=== PATIENT | female | born 1990 | race Hispanic/Latino ===

== ENCOUNTER 2017-04-21 14:35 | Inpatient (IN) | payer OTHER ==
[2017-04-21 16:15] LABS: Hemoglobin 13.4 gm/dl (10.1-14.3); Mean Corpuscular HGB Conc 33 % (30-34); Mean Corpuscular Hemoglobin 29 pg (28-32); Mean Corpuscular Volume 88 fl (79-97); Platelet Count 406 K/mm3 (140-440); Red Blood Count 4.65 M/mm3 (3.65-5.03); Red Cell Distribution Width 14.5 % (13.2-15.2); White Blood Count 11.2 K/mm3 (4.5-11.0)
[2017-04-21 16:32] LABS: Anion Gap 20 mmol/L; BUN/Creatinine Ratio 28; Blood Urea Nitrogen 17 mg/dL (7-17); Calcium 8.3 mg/dL (8.4-10.2); Carbon Dioxide 24 mmol/L (22-30); Chloride 100.6 mmol/L (98-107); Glucose 227 mg/dL (65-100); Potassium 4.6 mmol/L (3.6-5.0); Sodium 140 mmol/L (137-145)
[2017-04-21 17:02] LABS: Basophils % (Manual) 0 % (0.0-1.8); Blastocytes % (Manual) 0 %; Eosinophils % (Manual) 0 % (0.0-4.3)
[2017-04-21 17:03] LABS: Anisocytosis 1+; Ovalocytes Few
[2017-04-21 17:04] LABS: Diff Status Complete; Tear Drop Cells Rare
[2017-04-21] MEDS ORDERED: ATROVENT IH ONE ×2 (18:37→20:04)
[2017-04-21] MEDS ORDERED: TORADOL IV ONE (18:37)
[2017-04-21] MEDS ORDERED: PROVENTIL IH ONE ×2 (18:37→20:04)
--- NOTE | 2017-04-21 18:42 | Emergency Department Report ---
HPI - General Chief Complaint: Dyspnea/Respdistress Time Seen by Provider: 04/21/17 18:30 - HPI HPI: Room 18 The patient is a 27-year-old female presenting with a chief complaint of shortness of breath. The patient states she has felt "sick" for the past 2 weeks which includes increased work of breathing, chest tightness and dyspnea on exertion. Patient doesn't attend cough is nonproductive. Patient denies fever but admits to chills. Patient was nausea but denies vomiting. Patient states she developed rhinorrhea yesterday. Patient denies dysuria or sick contacts. Patient states she was diagnosed bronchitis 2 weeks ago and completed a course of azithromycin. Patient came by EMS and was administered as well as Solu-Medrol 125 mg IV and magnesium sulfate 2 g Location: Lungs Duration: 2 weeks Quality: Shortness of breath, wheezing Severity: Moderate Modifying factors: [see above] Context: [see above] Mode of transportation: [not driving] ED Past Medical Hx - Past Medical History Hx Asthma: Yes - Surgical History Past Surgical History?: No - Family History Family history: no significant - Social History Smoking Status: Former Smoker (none 5 days) Substance Use Type: None (denies illicit drug use) - Medications Home Medications: Home Medications Medication Instructions Recorded Confirmed Last Taken Type ALBUTEROL Inhaler [Proair] 2 puff IH QID PRN #1 inhalation 04/21/17 Unknown Rx Ibuprofen [Motrin 800 MG tab] 800 mg PO Q8HR PRN #20 tablet 04/21/17 Unknown Rx Prednisone [predniSONE 10 mg 10 mg PO .TAPER #1 tab.ds.pk 04/21/17 Unknown Rx (6-Day Pack, 21 Tabs)] ED Review of Systems ROS: Stated complaint: JARETT Other details as noted in HPI Constitutional: chills. denies: fever ENT: other (rhinorrhea) Respiratory: cough, shortness of breath, wheezing Endocrine: no symptoms reported Gastrointestinal: nausea. denies: vomiting Genitourinary: denies: dysuria Musculoskeletal: myalgia Physical Exam - Physical Exam Vital Signs: Vital Signs 04/21/17 04/21/17 14:54 15:07 Temperature 98.2 F 98.2 F Pulse Rate 129 H 109 H Respiratory 24 22 Rate Blood Pressure 112/69 Blood Pressure 103/64 [Left] O2 Sat by Pulse 99 99 Oximetry Physical Exam: GENERAL: The patient is well-developed well-nourished female sleeping on stretcher not appearing to be in acute distress. And easily awakened HEENT: Normocephalic. Atraumatic. Extraocular motions are intact. Patient has moist mucous membranes. NECK: Supple. Trachea midline CHEST/LUNGS: Faint wheezes bilaterally. There is no respiratory distress noted. HEART/CARDIOVASCULAR: Regular. There is no tachycardia. There is no gallop rub or murmur. ABDOMEN: Abdomen is soft, nontender. Patient has normal bowel sounds. There is no abdominal distention. SKIN: There is no rash. There is no diaphoresis. NEURO: The patient is awake, alert, and oriented. The patient is cooperative. The patient has normal speech and gait. MUSCULOSKELETAL: T There is no evidence of acute injury. ED Course Vital Signs 04/21/17 04/21/17 14:54 15:07 Temperature 98.2 F 98.2 F Pulse Rate 129 H 109 H Respiratory 24 22 Rate Blood Pressure 112/69 Blood Pressure 103/64 [Left] O2 Sat by Pulse 99 99 Oximetry - Reevaluation(s) Reevaluation #1: 04/21/17 20:58 There's been no improvement despite multiple nebulizers, slight Medrol and magnesium. Will admit the patient to the hospital ED Medical Decision Making - Lab Data Result diagrams: 04/21/17 15:59 04/21/17 15:59 Laboratory Tests 04/21/17 04/21/17 04/21/17 15:59 15:59 17:42 WBC 11.2 H RBC 4.65 Hgb 13.4 Hct 41.0 MCV 88 MCH 29 MCHC 33 RDW 14.5 Plt Count 406 Add Manual Diff Complete Total Counted 100 Seg Neuts % (Manual) 93.0 H Band Neutrophils % 0 Lymphocytes % (Manual) 6.0 L Reactive Lymphs % (Man) 0 Monocytes % (Manual) 1.0 Eosinophils % (Manual) 0 Basophils % (Manual) 0 Metamyelocytes % 0 Myelocytes % 0 Promyelocytes % 0 Blast Cells % 0 Nucleated RBC % Not Reportable Seg Neutrophils # Man 10.4 H Band Neutrophils # 0.0 Lymphocytes # (Manual) 0.7 L Abs React Lymphs (Man) 0.0 Monocytes # (Manual) 0.1 Eosinophils # (Manual) 0.0 Basophils # (Manual) 0.0 Metamyelocytes # 0.0 Myelocytes # 0.0 Promyelocytes # 0.0 Blast Cells # 0.0 WBC Morphology Not Reportable Hypersegmented Neuts Not Reportable Hyposegmented Neuts Not Reportable Hypogranular Neuts Not Reportable Smudge Cells Not Reportable Toxic Granulation Not Reportable Toxic Vacuolation Not Reportable Dohle Bodies Not Reportable Pelger-Huet Anomaly Not Reportable Farhan Rods Not Reportable Platelet Estimate Appears normal Clumped Platelets Not Reportable Plt Clumps, EDTA Not Reportable Large Platelets Not Reportable Giant Platelets Not Reportable Platelet Satelliting Not Reportable Plt Morphology Comment Not Reportable RBC Morphology Not Reportable Dimorphic RBCs Not Reportable Polychromasia Not Reportable Hypochromasia Not Reportable Poikilocytosis Not Reportable Anisocytosis 1+ Microcytosis Not Reportable Macrocytosis Not Reportable Spherocytes Not Reportable Pappenheimer Bodies Not Reportable Sickle Cells Not Reportable Target Cells Not Reportable Tear Drop Cells Rare Ovalocytes Few Helmet Cells Not Reportable [place] Bodies Not Reportable [place] Rings Not Reportable [place] Cells Not Reportable Bite Cells Not Reportable Crenated Cell Not Reportable Elliptocytes Not Reportable Acanthocytes (Spur) Not Reportable Rouleaux Not Reportable Hemoglobin C Crystals Not Reportable Schistocytes Not Reportable Malaria parasites Not Reportable Leonid Bodies Not Reportable Hem Pathologist Commnt No Sodium 140 Potassium 4.6 Chloride 100.6 Carbon Dioxide 24 Anion Gap 20 BUN 17 Creatinine 0.6 L Estimated GFR > 60 BUN/Creatinine Ratio 28 Glucose 227 H Calcium 8.3 L Troponin T < 0.010 Urine HCG, Qual Negative - EKG Data -: EKG Interpreted by Me EKG shows normal: sinus rhythm Rate: tachycardia (121 bpm) - Radiology Data Radiology results: image reviewed (chest x-ray) interpreted by me: Chest x-ray-no definite focal infiltrates. No pneumothorax - Differential Diagnosis acute asthma exacerbation influenza, pneumonia, pneumothorax Critical care attestation.: If time is entered above; I have spent that time in minutes in the direct care of this critically ill patient, excluding procedure time. ED Disposition Clinical Impression: URI (upper respiratory infection), Status asthmaticus Disposition: OP ADMIT IP TO THIS HOSP Is pt being admited?: Yes Does the pt Need Aspirin: No Condition: Fair Instructions: Asthma (ED) Additional Instructions: Return to the emergency department immediately should you develop worsening symptoms, fever, inability to tolerate food or liquid or any other concerns. Prescriptions: ALBUTEROL Inhaler [Proair] 2 puff IH QID PRN #1 inhalation PRN Reason: Shortness Of Breath Ibuprofen [Motrin 800 MG tab] 800 mg PO Q8HR PRN #20 tablet PRN Reason: Pain Prednisone [predniSONE 10 mg (6-Day Pack, 21 Tabs)] 10 mg PO .TAPER #1 tab.ds.pk Referrals: PRIMARY CARE, [Primary Care Provider] - 3-5 Days Time of Disposition: 21:00 (hospitalist paged)
[2017-04-21] MEDS ORDERED: XOPENEX IH ONE (21:41)
[2017-04-21] MEDS ORDERED: MOTRIN PO ONE (22:07)
[2017-04-21] MEDS ORDERED: DULCOLAX PR PRN (22:09)
[2017-04-21] MEDS ORDERED: MILK OF MAGNESIA PO PRN (22:09)
--- NOTE | 2017-04-21 22:12 | History and Physical Report ---
History of Present Illness Date of examination: 04/21/17 History of present illness: 27-year-old woman with history of asthma comes to emergency room with complaints of shortness of breath 2 weeks, nonproductive cough and chills. She has no nebulizer treatments at home Review Of Systems: Constitutional: no weight loss Ears, eyes, nose, mouth and throat: no nasal congestion, no nasal discharge, no sinus pressure, blurry vision, diplopia Neck: No neck pain or rigidity. Cardiovascular: chest pain, orthopnea, palpitations Respiratory: + shortness of breath, cough Gastrointestinal: no abdominal pain, hematochezia Genitourinary : no dysuria, frequency , hematuria Musculoskeletal: no muscle ache Integumentary: no rash, no pruritis Neurological: no parathesias, focal weakness Endocrine: no cold or heat intolerance, no polyuria or polydipsia Hematologic/Lymphatic: no easy bruising, no easy bleeding, no gland swelling Allergic/Immunologic: no urticaria, no angioedema. PAST MEDICAL HISTORY:asthma PAST SURGICAL HISTORY: 2 FAMILY HISTORY: Hypertension SOCIAL HISTORY: Smokes half pack a day, no alcohol or drugs Medications and Allergies Allergies Allergy/AdvReac Type Severity Reaction Status Date / Time Penicillins AdvReac Angioedema Verified 04/21/17 15:09 Home Medications Medication Instructions Recorded Confirmed Last Taken Type ALBUTEROL Inhaler [Proair] 2 puff IH QID PRN #1 inhalation 04/21/17 Unknown Rx Ibuprofen [Motrin 800 MG tab] 800 mg PO Q8HR PRN #20 tablet 04/21/17 Unknown Rx Prednisone [predniSONE 10 mg 10 mg PO .TAPER #1 tab.ds.pk 04/21/17 Unknown Rx (6-Day Pack, 21 Tabs)] Exam - Physical Exam Narrative exam: Gen. appearance: Patient lying in bed in no acute distress HEENT: Normocephalic/atraumatic, pupils equal round reactive to light, extra alkaline movement intact, no scleral icterus, no JVD or thyromegaly or nodule, neck is supple, mucous membrane moist, no erythema or exudate Heart: S1-S2, regular rate and rhythm Lungs: Wheezing bilateral breathing comfortable Abdomen: Positive bowel sounds, nontender, nondistended, no organomegaly Extremities: No edema, cyanosis, clubbing Neuro:: Oriented 3 , cranial nerves II-12 intact, speech, motor intact Skin: No rash, nodules, warm dry - Constitutional Vitals: Temp Pulse Resp BP Pulse Ox 97.7 F 118 H 22 111/70 95 04/21/17 19:42 04/21/17 21:13 04/21/17 21:13 04/21/17 19:32 04/21/17 19:32 Results - Labs CBC & Chem 7: 04/21/17 15:59 04/21/17 15:59 Labs: Abnormal lab results 04/21/17 04/21/17 Range/Units 15:59 15:59 WBC 11.2 H (4.5-11.0) K/mm3 Seg Neuts % (Manual) 93.0 H (40.0-70.0) % Lymphocytes % (Manual) 6.0 L (13.4-35.0) % Seg Neutrophils # Man 10.4 H (1.8-7.7) K/mm3 Lymphocytes # (Manual) 0.7 L (1.2-5.4) K/mm3 Creatinine 0.6 L (0.7-1.2) mg/dL Glucose 227 H (65-100) mg/dL Calcium 8.3 L (8.4-10.2) mg/dL Assessment and Plan Assessment Asthma exacerbation Plan Admit to medicine Start high-dose steroids, nebulizer treatments DVT prophylaxis
[2017-04-21] MEDS: ROBITUSSIN AC PO PRN (23:20)
[2017-04-22] MEDS: DUONEB *Not for PRN Use IH SCH ×2 (02:37→08:18)
[2017-04-22] MEDS: ZOFRAN IV PRN ×2 (02:43→11:38)
[2017-04-22 03:07] LABS: Hematocrit 37.8 % (30.3-42.9); Hemoglobin 12.8 gm/dl (10.1-14.3); Mean Corpuscular HGB Conc 34 % (30-34); Mean Corpuscular Hemoglobin 30 pg (28-32); Mean Corpuscular Volume 87 fl (79-97); Platelet Count 390 K/mm3 (140-440); Red Blood Count 4.33 M/mm3 (3.65-5.03); Red Cell Distribution Width 14.3 % (13.2-15.2); White Blood Count 10.4 K/mm3 (4.5-11.0)
[2017-04-22 03:24] LABS: Anion Gap 22 mmol/L; BUN/Creatinine Ratio 20; Blood Urea Nitrogen 10 mg/dL (7-17); Calcium 8.7 mg/dL (8.4-10.2); Carbon Dioxide 18 mmol/L (22-30); Chloride 102.2 mmol/L (98-107); Glucose 227 mg/dL (65-100); Sodium 139 mmol/L (137-145)
[2017-04-22 04:09] LABS: Basophils % (Manual) 0 % (0.0-1.8); Blastocytes % (Manual) 0 %; Diff Status Complete; Eosinophils % (Manual) 0 % (0.0-4.3); Platelet Estimate Consistent w Auto
[2017-04-22] MEDS: TYLENOL PO PRN ×2 (04:21→11:38)
[2017-04-22] MEDS: ROBITUSSIN AC PO PRN ×2 (04:22→10:38)
[2017-04-22] MEDS ORDERED: PROVENTIL IH PRN (05:28)
--- NOTE | 2017-04-22 07:34 | XRay Report ---
ROUTINE CHEST, TWO VIEWS: HISTORY: Short of breath. No comparison. The lungs appear hyperinflated. This may represent reactive airway disease, bronchiolitis or emphysema. Bronchial wall thickening in the hilar regions is identified but no evidence for infiltrate, pleural effusion or pneumothorax. Normal heart and mediastinal structures. The bony thorax is unremarkable. IMPRESSION: Hyperinflated lungs.
[2017-04-22] MEDS ORDERED: LOVENOX SUB-Q SCH (10:00)
[2017-04-22 11:53] VITALS: BP 88/59
--- NOTE | 2017-04-22 15:25 | Discharge Summary ---
Providers - Providers Date of Admission: 04/21/17 22:09 Attending physician: RAJAT BANKS Primary care physician: [employer] Hospitalization Condition: Fair Hospital course: Patient is a 27-year-old woman with history of asthma with multiple exacerbations who presents with worsening shortness of breath. She states she' s not at baseline, pulse ox is only 93% on room air. -Acute severe asthma exacerbation: iv steriods, nebs -SIRS, poa -Tobacco dependance: advised to stop -Steriod induced hyerglycemia: ssi Patient left AMA because of social issues. I tried to convince her otherwise. I also told to wait for scripts which she refused Disposition: [id number] LEFT AGAINST MED ADVICE Time spent for discharge: 35 minutes Core Measure Documentation - Palliative Care Palliative Care/ Comfort Measures: Not Applicable - Core Measures Any of the following diagnoses?: none - VTE Discharge Requirements Deep Vein Thrombosis/Pulmonary Embolism Present on Admission: No Has pt received <5 days of overlap therapy or INR<2.0: No Anticoagulant overlap therapy prescribed at discharge: No Contraindication No Overlap Therapy order at DC: Not Indicated Exam - Physical Exam Narrative exam: GEN: Thin woman BMI 18, NAD, AWAKE, ALERT, ORIENTATED 3 HEENT: NCAT, EOMI, PERRL, OP Clear NECK: supple, no adenopathy, no thyromegaly, no JVD CVS/HEART: RRR, NORMAL S1S2, NO JVD, pulses present bilaterally CHEST/LUNGS: Bilateral wheezing Symmetrical chest expansion, diminished air entry bilaterally GI/Abdomen: soft, NTND, good bowel sounds, no guarding or rebound /Bladder: no suprapubic tenderness, no CVA or paraspinal tenderness EXT/Skin: no c/c/e, no obvious rash MSK: FROM x 4 Neuro: CN 2-12 grossly intact, no new focal deficits Psych: calm - Constitutional Vitals: Temp Pulse Resp BP Pulse Ox 98.3 F 128 H 18 88/59 93 04/22/17 11:42 04/22/17 11:42 04/22/17 11:42 04/22/17 11:42 04/22/17 11:42 Plan Activity: other (no strenous activity until cleared by pcp) Diet: regular Follow up with: PRIMARY CARE, [Primary Care Provider] - 3-5 Days Prescriptions: ALBUTEROL Inhaler [Proair] 2 puff IH QID PRN #1 inhalation PRN Reason: Shortness Of Breath
[2017-04-23] MEDS ORDERED: LOVENOX SUB-Q SCH (10:00)
[2017-04-23] MEDS ORDERED: Fluarix Quad 2017-2018(36 MOS+ IM ONE (12:00)
== END 2017-04-22 13:02 | disposition left against medical advice (07) | DRG 203 ==
LOC: ED 14:35 → 3A 22:09
PROVIDERS: ADMIT Internal Medicine; ATTEND Internal Medicine
PROC: 3E0234Z Introduction of Serum, Toxoid and Vaccine into Muscle, Percutaneous Approach (ICD-10-PCS; principal; 2017-04-22)
DX: J45.901 Unspecified asthma with (acute) exacerbation (principal); J45.902 Unspecified asthma with status asthmaticus; F17.200 Nicotine dependence, unspecified, uncomplicated; Z82.49 Family history of ischemic heart disease and other diseases of the circulatory system; Z88.0 Allergy status to penicillin; Z79.899 Other long term (current) drug therapy; Z23 Encounter for immunization
CPT/HCPCS: 36415; 71020; 80048; 81025; 84484; 85007; 85025; 87400; 93005; 93010; 94640; 96374; 99285; J1650; J1885; J2405; J2930